=== PATIENT | female | born 1955 | race Caucasian/White ===

== ENCOUNTER 2022-03-21 20:25 | Inpatient (IN) | payer MEDICARE, OTHER ==
[~2022-03-21] VITALS: Ht 157.5 cm; Wt 85.0 kg
[2022-03-21] MEDS ORDERED: CLOP75 PO (20:49)
[2022-03-21] MEDS ORDERED: CYCL10 (20:49)
[2022-03-21] MEDS ORDERED: TRIA50 (20:49)
[2022-03-21] MEDS ORDERED: HYDCHL12.5 (20:50)
[2022-03-21] MEDS ORDERED: ROSU10TA PO (20:50)
[2022-03-21] MEDS ORDERED: LOSA25 (20:50)
[2022-03-21] MEDS ORDERED: METOPROLOL SUCC25 MG PO (20:51)
[2022-03-21] MEDS ORDERED: ASPI81CH PO (20:51)
[2022-03-21 20:59] LABS: BASOPHILS ABSOLUTE AUTO 0.04 K/mm3 (0.00-0.23); BASOPHILS PERCENT AUTO 0 % (0-2); EOSINOPHILS PERCENT AUTO 0 % (0-6); Hemoglobin 13.3 g/dL (11.5-16.0); IMMATURE GRAN ABSOLUTE AUTO 0.09 K/mm3 (0.00-0.10); IMMATURE GRAN PERCENT AUTO 1 % (0-1); LYMPHOCYTES ABSOLUTE AUTO 0.94 K/mm3 (0.84-5.20); LYMPHOCYTES PERCENT AUTO 6 % (21-46); MONOCYTES ABSOLUTE AUTO 0.77 K/mm3 (0.16-1.47); MONOCYTES PERCENT AUTO 5 % (4-13); Mean Corpuscular HGB 30.4 pg (26.0-34.0); Mean Corpuscular Volume 87 fL (80-100); Mean Platelet Volume 9.3 fL (9.1-12.4); NEUTROPHILS ABSOLUTE AUTO 14.31 K/mm3 (1.96-9.15); NEUTROPHILS PERCENT AUTO 89 % (41-73); Platelet Count 324 K/mm3 (150-400); RDW Coefficient Variation 12.8 % (11.7-14.2); RDW Standard Deviation 40.3 fL (35.1-46.3); Red Blood Cell Count 4.37 M/mm3 (3.80-5.20); White Blood Cell Count 16.15 K/mm3 (4.00-11.30)
[2022-03-21 21:21] LABS: Magnesium, Blood 2.6 mg/dL (1.6-2.4); Thyroid Stimulating Hormone 1.59 uIU/mL (0.360-4.800)
[2022-03-21 21:26] LABS: Albumin, Blood 3.3 g/dL (3.4-5.0); Albumin/Globulin Ratio 0.9 (0.8-1.8); Bilirubin, Total 0.8 mg/dL (0.1-1.0); Bun/Creatinine Ratio 17.8 (12.0-20.0); Calcium, Blood 10.9 mg/dL (8.5-10.1); Creatinine, Blood 2.08 mg/dL (0.40-1.00); Globulin, Blood 3.6 g/dL (2.2-4.0); Potassium, Blood 2.4 mmol/L (3.5-5.5); Total Protein, Blood 6.9 g/dL (6.4-8.2)
[2022-03-21 22:26] LABS: Source, Urine Clean Catch
[2022-03-21 22:30] LABS: Bilirubin, Urine Neg (Neg); Blood, Urine 5+ (Neg); Glucose Qualitative, Urine 3+ (Neg); Ketones, Urine 2+ (Neg); Leukocyte Esterase, Urine 3+ (Neg); Nitrite, Urine Neg (Neg); Protein, Urine 3+ (Neg); Urobilinogen, Urine 1+ (Normal)
[2022-03-21 22:36] LABS: Appearance, Urine Cloudy (Clear); Color, Urine Yellow (P-Yellow)
[2022-03-21 22:39] LABS: Amorphous Mod (0-Heavy); Bacteria Many /hpf; Granular Casts 25-50 /lpf (0); Red Blood Cells, Urine 0-2 /hpf (0-2); Squamous Epithelial Cells Mod /hpf (Few)
[2022-03-21 23:58] LABS: U Amphetamine Screen Not Detected; U Barbituate Screen Not Detected; U Benzodiazapine Screen Not Detected; U Buprenorphine Screen Not Detected; U Cannabinoids Screen Not Detected; U Cocaine Screen Not Detected; U Methadone Screen Not Detected; U Methamphetamine Screen Not Detected; U Opiates Screen DETECTED; U Oxycodone Screen Not Detected; U Phencyclidine Screen Not Detected; U Propoxyphene Screen Not Detected
--- NOTE | 2022-03-22 01:16 | NUR ---
ASSUMED PT CARE AT 0020 PT ADMITTED TO PCU SECONDARY TO UROSEPSIS AND ARF. PT ALERT AND ORIENTED AND ABLE TO MAKE NEEDS KNOWN. PT PRESENTED HYPOTENSIVE INITIALLY; HOWEVER, BP CUFF APPEARED TOO BIG FOR PT'S ARM. REPLACED WITH SMALLER/APPROPRIATE SIZE AND SBP'S >100 WITH MAP'S >60. PT'S 3RD LITER OF NS WAS FINISHING INFUSING. POTASSIUM 10MEQ INFUSING AT 100ML/HR VIA 20G TO RIGHT FOREARM. NS STARTED AT MAINTENANCE RATE OF 100ML/HR PER ORDERS. PT C/O SEVERE BUTT PAIN. STATED SHE FELL AND HIT HER BUTT ON CONCRETE. PT STATES SHE IS NOT AMBULATORY AND UTILIZES A SCOOTER FOR LOCOMOTION. STATES SHE DOES STAND PIVOT TRANSFER TO THE TOILET. VERY CONCERNED ABOUT NOT HAVING A BM. ASKED PT IF SHE HAS HAD THESE ISSUES PREVIOUSLY AND SHE STATED NO. ATTEMPTED TO EDUCATE REGARDING OPIOID USE AND CONSTIPATION, PT BECAME ABRUPT AND STATED SHE KNEW. ASKED WHAT SHE TOOK NARCOTICS FOR AND PT STATED SHE COULDN'T REMEMBER. NO HX OF CHRONIC PAIN PER PATIENT. STATED IT WAS PRESCRIBED TO HER DUE TO HER MOST RECENT FALL. SHE ALSO STATED SHE HAS A LUMP ON HER HEAD FROM HITTING IT FROM HER FALL WELL. 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 SBP 100-130'S. AFEBRILE. 99% ON ROOM AIR. ATTENDS IN PLACE. PT NOTED TO HAVE A STREAK OF A BM UPON ADMIT; SINDY CARE GIVEN WITH NEW ATTENDS PLACE. SKIN OVERALL APPEARS INTACT; HOWEVER, RECTAL/BUTTOCK AREA APPEARS VERY RED D/T MOISTURE/EXCORIATION. SEE SHIFT ASSESSMENT FOR FURTHER DETAILS.
[2022-03-22 04:24] LABS: BASOPHILS ABSOLUTE AUTO 0.04 K/mm3 (0.00-0.23); BASOPHILS PERCENT AUTO 0 % (0-2); EOSINOPHILS PERCENT AUTO 0 % (0-6); Hematocrit 34.6 % (33.0-51.0); Hemoglobin 12.2 g/dL (11.5-16.0); IMMATURE GRAN ABSOLUTE AUTO 0.07 K/mm3 (0.00-0.10); IMMATURE GRAN PERCENT AUTO 1 % (0-1); LYMPHOCYTES ABSOLUTE AUTO 1.23 K/mm3 (0.84-5.20); LYMPHOCYTES PERCENT AUTO 8 % (21-46); MONOCYTES PERCENT AUTO 5 % (4-13); Mean Corpuscular HGB 30.7 pg (26.0-34.0); Mean Corpuscular HGB Conc 35.3 g/dL (31.5-36.5); Mean Corpuscular Volume 87 fL (80-100); Mean Platelet Volume 9.1 fL (9.1-12.4); NEUTROPHILS ABSOLUTE AUTO 12.62 K/mm3 (1.96-9.15); NEUTROPHILS PERCENT AUTO 86 % (41-73); Platelet Count 245 K/mm3 (150-400); RDW Coefficient Variation 12.9 % (11.7-14.2); RDW Standard Deviation 40.8 fL (35.1-46.3); Red Blood Cell Count 3.97 M/mm3 (3.80-5.20); White Blood Cell Count 14.76 K/mm3 (4.00-11.30)
[2022-03-22 04:45] LABS: Albumin, Blood 2.8 g/dL (3.4-5.0); Albumin/Globulin Ratio 0.9 (0.8-1.8); Bilirubin, Total 0.5 mg/dL (0.1-1.0); Bun/Creatinine Ratio 17.3 (12.0-20.0); Calcium, Blood 9.2 mg/dL (8.5-10.1); Creatinine, Blood 1.85 mg/dL (0.40-1.00); Globulin, Blood 3.1 g/dL (2.2-4.0); Potassium, Blood 2.6 mmol/L (3.5-5.5); Total Protein, Blood 5.9 g/dL (6.4-8.2)
--- NOTE | 2022-03-22 06:49 | NUR ---
END OF SHIFT SUMMARY PT SLEPT MOST OF SHIFT. PREFERS TO BE ON HER SIDE DUE TO HER BACK/BUTTOCK PAIN. DIFFICULT IV ACCESS; THEREFORE, MIDLINE PLACED TO SHAHLA. NS INFUSING AT 100ML/HR X1.5 BAGS. 40MEQ OF IV POTASSIUM IS ALSO BEING REPLACED D/T POTASSIUM <3.0. PT REMAINS ALERT AND ORIENTED AND MAKING NEEDS KNOWN. PT'S CURIOUS ABOUT BREAKFAST SHE IS CURRENTLY NPO STATUS; WILL HAVE DAY RN FOLLOW UP. PT CALLED THIS MORNING VERY EMOTIONAL AND WANTING HIM TO COME TO THE [facility]. VERBALIZED HOW MUCH BETTER SHE SOUNDED AND SHE WAS ACTUALLY TALKING. WILL CONTINUE TO MONITOR UNTIL REPORT IS HANDED OFF TO ONCOMING RN.
[2022-03-22 14:14] LABS: Bun/Creatinine Ratio 18.6 (12.0-20.0); Calcium, Blood 8.7 mg/dL (8.5-10.1); Creatinine, Blood 1.67 mg/dL (0.40-1.00); Potassium, Blood 4.4 mmol/L (3.5-5.5)
--- NOTE | 2022-03-22 18:14 | NUR ---
SHIFT SUMMARY PT HAS SPENT THE DAY RESTING IN BED AND THEY HAVE SLEPT OFF AND ON. PT C/O 04/05 PAIN TO THE LOWER BACK/BUTTOCKS, THIS WAS TREATED WITH REPOSITIONING, HEAT, AND PER EMAR. PT HAS HAD FAMILY AT BEDSIDE THROUGHOUT THE DAY. PT WORKED WITH PHYSICAL AND OCCUPATIONAL THERAPIES AND WAS A WILLING PARTICIPANT IN CARES AND DISCUSSION OF CARE PLANNING. PT AND FAMILY HAD MANY QUESTIONS ABOUT THE CURRENT ILLNESS, HOSPITALIZATION, AND RECOVERY. VITAL SIGNS HAVE REMAINED STABLE THROUGHOUT SHIFT.
[2022-03-23 05:56] LABS: BASOPHILS ABSOLUTE AUTO 0.02 K/mm3 (0.00-0.23); BASOPHILS PERCENT AUTO 0 % (0-2); EOSINOPHILS ABSOLUTE AUTO 0.02 K/mm3 (0.00-0.68); EOSINOPHILS PERCENT AUTO 0 % (0-6); Hematocrit 27.6 % (33.0-51.0); Hemoglobin 9.3 g/dL (11.5-16.0); IMMATURE GRAN ABSOLUTE AUTO 0.05 K/mm3 (0.00-0.10); IMMATURE GRAN PERCENT AUTO 1 % (0-1); LYMPHOCYTES ABSOLUTE AUTO 1.31 K/mm3 (0.84-5.20); LYMPHOCYTES PERCENT AUTO 13 % (21-46); MONOCYTES ABSOLUTE AUTO 0.63 K/mm3 (0.16-1.47); MONOCYTES PERCENT AUTO 6 % (4-13); Mean Corpuscular HGB Conc 33.7 g/dL (31.5-36.5); Mean Platelet Volume 9.3 fL (9.1-12.4); NEUTROPHILS ABSOLUTE AUTO 7.82 K/mm3 (1.96-9.15); NEUTROPHILS PERCENT AUTO 79 % (41-73); Platelet Count 234 K/mm3 (150-400); RDW Coefficient Variation 13.2 % (11.7-14.2); RDW Standard Deviation 43.8 fL (35.1-46.3); White Blood Cell Count 9.85 K/mm3 (4.00-11.30)
--- NOTE | 2022-03-23 06:12 | NUR ---
SHIFT SUMMARY Assumed care of pt at 1900. A/Ox3-4, thought it was December. No c/o CP/pressure, does complain of anal burning with continued liquid stool with 2 hard leila, rated 10/10, creams applied. Weakness noted t/o. Maintains over 95% on RA, LS clear. Tele SR w/ 1st degree HB, faint +1 pulses t/o. Swelling to both feet, L > R. Mild abdominal distention with hyperactive bowel tones, small amounts of liquid stool. C/o nausea, medicated per emar. Will report to gildardo MARINA.
[2022-03-23 06:21] LABS: Bun/Creatinine Ratio 17.3 (12.0-20.0); Calcium, Blood 9.1 mg/dL (8.5-10.1); Creatinine, Blood 1.62 mg/dL (0.40-1.00); Potassium, Blood 3.3 mmol/L (3.5-5.5)
[2022-03-23 06:22] LABS: Mean Corpuscular Volume 92 fL (80-100)
--- NOTE | 2022-03-23 18:20 | NUR ---
SHIFT SUMMARY PT HAS BEEN RESTING IN BED, SLEEPING OFF AND ON THROUGHOUT THE DAY. PT HAD FAMILY COME TO VISIT THROUGHOUT THE DAY. PT HAS C/O TENDERNESS TO SACRUM/RECTUM, BARRIER OINTMENT HAS BEEN PLACED AT EACH ATTENDS CHANGE. PT HAS HAD MULTIPLE ATTENDS CAHNGES OF SMEARS WITH SMALL AMOUNT OF LIQUID STOOL. PT HAS BEEN PLEASANT AND COOPERATIVE WITH ALL CARES. FAMILY WAS UPDATED ON PT CONDITION AND PLAN OF CARE. ALL VITAL SIGNS HAVE REMAINED STABLE. NO ACUTE CHANGES IN PT CONDITION.
--- NOTE | 2022-03-24 05:35 | NUR ---
SHIFT SUMMARY Patient remained A/Ox4 through the night. VSS. A few small incontinent liquid stools, incontinent of urine as well. Slept most of the night. No acute changes during the night. Will report to dayshift RN.
[2022-03-24 09:19] LABS: BASOPHILS ABSOLUTE AUTO 0.03 K/mm3 (0.00-0.23); BASOPHILS PERCENT AUTO 0 % (0-2); EOSINOPHILS ABSOLUTE AUTO 0.02 K/mm3 (0.00-0.68); EOSINOPHILS PERCENT AUTO 0 % (0-6); Hematocrit 28.9 % (33.0-51.0); Hemoglobin 9.6 g/dL (11.5-16.0); IMMATURE GRAN ABSOLUTE AUTO 0.03 K/mm3 (0.00-0.10); IMMATURE GRAN PERCENT AUTO 0 % (0-1); LYMPHOCYTES ABSOLUTE AUTO 2.13 K/mm3 (0.84-5.20); LYMPHOCYTES PERCENT AUTO 31 % (21-46); MONOCYTES PERCENT AUTO 6 % (4-13); Mean Corpuscular HGB 30.5 pg (26.0-34.0); Mean Corpuscular HGB Conc 33.2 g/dL (31.5-36.5); Mean Corpuscular Volume 92 fL (80-100); NEUTROPHILS ABSOLUTE AUTO 4.32 K/mm3 (1.96-9.15); NEUTROPHILS PERCENT AUTO 62 % (41-73); Platelet Count 231 K/mm3 (150-400); RDW Coefficient Variation 13.2 % (11.7-14.2); Red Blood Cell Count 3.15 M/mm3 (3.80-5.20); White Blood Cell Count 6.93 K/mm3 (4.00-11.30)
[2022-03-24 09:45] LABS: Bun/Creatinine Ratio 20.8 (12.0-20.0); Creatinine, Blood 1.25 mg/dL (0.40-1.00); Potassium, Blood 2.9 mmol/L (3.5-5.5)
[2022-03-24] MEDS ORDERED: ACET325 PO (11:33)
[2022-03-24] MEDS ORDERED: DOCU100 PO (11:34)
[2022-03-24] MEDS ORDERED: GLIP5 PO (11:35)
[2022-03-24] MEDS ORDERED: SENN187 PO (11:36)
[2022-03-24] MEDS ORDERED: VISBIOME 112.51 EACH PO (11:37)
[2022-03-24] MEDS ORDERED: CIPR250 PO (11:38)
[2022-03-24] MEDS ORDERED: POTCHL20ER PO (11:39)
--- NOTE | 2022-03-24 13:20 | NUR ---
DISCHARGE SUMMARY PT WAS TRANSPORTED BY PERSONAL MOBILITY SCOOTER TO PRIVATE VEHICLE. ALL BELONGINGS AND DISCHARGE INSTRUCTIONS WERE IN PT'S POSSESSION AT TIME OF DISCHARGE. PT DISCUSSED CONCERNS AND QUESTIONS WITH THIS RN PRIOR TO DISCHARGE. PT STATED AN UNDERSTANDING OF INSTRUCTIONS AND NO FURTHER QUESTIONS OR CONCERNS AT THIS TIME.
== END 2022-03-24 13:25 | disposition home or self-care (01) | DRG 871 ==
LOC: ER 20:25 → ICUW 23:13 → PCU 23:13
PROVIDERS: Emergency Medicine; Internal Medicine; ADMIT Internal Medicine
DX: A41.9 Sepsis, unspecified organism (principal); G93.41 Metabolic encephalopathy; N17.9 Acute kidney failure, unspecified; N39.0 Urinary tract infection, site not specified; E87.2 Acidosis; N18.4 Chronic kidney disease, stage 4 (severe); R65.20 Severe sepsis without septic shock; K62.89 Other specified diseases of anus and rectum; E87.6 Hypokalemia; I12.9 Hypertensive chronic kidney disease with stage 1 through stage 4 chronic kidney disease, or unspecified chronic kidney disease; E11.22 Type 2 diabetes mellitus with diabetic chronic kidney disease; E86.0 Dehydration; B96.20 Unspecified Escherichia coli [E. coli] as the cause of diseases classified elsewhere; E11.65 Type 2 diabetes mellitus with hyperglycemia; B96.1 Klebsiella pneumoniae [K. pneumoniae] as the cause of diseases classified elsewhere; E78.5 Hyperlipidemia, unspecified; K59.00 Constipation, unspecified; Z79.82 Long term (current) use of aspirin; Z95.0 Presence of cardiac pacemaker; Z79.899 Other long term (current) drug therapy
CPT/HCPCS: 36415; 74022; 74176; 80048; 80053; 81001; 82947; 83036; 83605; 83735; 84443; 85025; 87040; 87077; 87086; 87186; 93005; 93010; 96360; 96361; 97162; 97166; 97530; 97535; 99285-25; A9270; C1751; J0696; J1650; J1815; J2405; J3480; J7030; J7040